=== PATIENT | male | born 1965 | race Native Hawaiian/Other Pacific Islander ===

== ENCOUNTER 2022-03-07 08:00 | Outpatient (CLI) | payer OTHER ==
--- NOTE | 2022-03-08 15:08 | XRAY Report ---
PROCEDURE: Knee 4 View LT INDICATIONS: KNEE PX TECHNIQUE: 4 views of the left knee(s) were acquired. COMPARISON: None. FINDINGS: Bones: No fractures or dislocations. No suspicious bony lesions. There is moderate bilateral femoro tibial compartment narrowing, slightly greater on the left than on the right. There are tricompartmen yulia left osteophytes. Soft tissues: No joint effusion. No suspicious soft tissue calcifications. IMPRESSION: Bilateral knee osteoarthritis. Reviewed by: Jamila Silva MD on 03/08/2022 3:07 PM PDT Approved by: Jamila Silva MD on 03/08/2022 3:07 PM PDT Station ID: [id number]
== END 2022-03-07 23:59 | disposition home or self-care (01) ==
LOC: DI.WOS 08:00
PROVIDERS: ATTEND Orthopaedic Surgery
DX: M17.0 Bilateral primary osteoarthritis of knee (principal)

== ENCOUNTER 2022-10-25 12:57 | Outpatient (CLI) | payer OTHER ==
--- NOTE | 2022-10-25 15:06 | XRAY Report ---
PROCEDURE: Hand 3 View RT INDICATIONS: THUMB PAIN,RIGHT TECHNIQUE: 3 views of the hand(s) acquired. COMPARISON: None FINDINGS: Bones: No fractures or dislocations. No suspicious bony lesions. Soft tissues: No suspicious soft tissue calcifications. IMPRESSION: No acute bony abnormality. No significant osteoarthritis. Reviewed by: Tyler Delaney on 10/25/2022 3:04 PM [facility] Approved by: Tyler Delaney on 10/25/2022 3:04 PM [facility] Station ID: [id number]
== END 2022-10-25 12:58 | disposition home or self-care (01) ==
LOC: DI 12:57
PROVIDERS: ATTEND Physician Assistant
DX: M79.644 Pain in right finger(s) (principal)